=== PATIENT | female | born 1950 | race Caucasian/White ===

== ENCOUNTER 2018-10-06 00:03 | Emergency (ER) | payer SELFPAY ==
[2018-10-06] MEDS: METOCLOPRAMIDE 10 MG INJ IV (01:14)
[2018-10-06] MEDS: SOD CHLORIDE 0.9% 1,000 ML IV (01:14)
[2018-10-06] MEDS: DIPHENHYDRAMINE 50 MG INJ IV (01:15)
[2018-10-06] MEDS: KETOROLAC 15 MG INJ IV (02:38)
[2018-10-06] MEDS: DEXAMETHASONE 10 MG/ML 1 ML INJ IV (02:38)
== END 2018-10-06 03:15 | disposition home or self-care (01) ==
LOC: E/R 00:03
DX: G44.209 Tension-type headache, unspecified, not intractable (principal); I10 Essential (primary) hypertension
CPT/HCPCS: 70450; 96374; 96375; 99285-25